=== PATIENT | male | born 1940 | race Caucasian/White ===

== ENCOUNTER 2019-10-22 05:09 | Day surgery (SDC) ==
[2019-10-15 15:16] LABS: HEMATOCRIT 46.4 % (42.0-52.0); HEMOGLOBIN 15.2 g/dL (14.0-18.0); MCH 29.3 PG (27-31); MCHC 32.8 g/dL (33-37); MCV 89.4 FL (81-99); MPV 9.1 FL (7.4-10.4); RBC 5.19 XMIL (4.7-6.1); RDW 13.9 % (11.5-14.5); WBC 9.67 X1000 (4.8-10.8)
--- NOTE | 2019-10-15 15:23 | EKG Report ---
Test Performed on : 10/15/2019 2:59:29 PM Test Reason : pat Blood Pressure : / mmHG Vent. Rate : 091 BPM Atrial Rate : 091 BPM P-R Int : 262 ms QRS Dur : 088 ms QT Int : 376 ms P-R-T Axes : 043 056 050 degrees QTc Int : 462 ms Sinus rhythm. with 1st degree AV block. Otherwise normal ECG When compared with ECG of 06-FEB-2014 12:30, SC interval has increased Vent. rate has increased BY 35 BPM QT has lengthened Confirmed by Priyanka ROBERTS, Eber ([id number]) on 10/15/2019 7:24:14 PM
[2019-10-15 15:59] LABS: CALCIUM 10.2 mg/dL (8.8-10.2); CREATININE 1.6 mg/dL (0.7-1.2); POTASSIUM 3.8 mmol/L (3.5-5.1)
[2019-10-22] MEDS ORDERED: LEVAQUIN 500 MG/D5W 500 MG/100 ML IVPB ONE (05:52)
[2019-10-22] MEDS ORDERED: LR 1,000 ML ONE ×2 (05:52→06:42)
[2019-10-22] MEDS ORDERED: STERILE WATER INJ. ONE (06:29)
[2019-10-22] MEDS ORDERED: QUELICIN (DOSE) ONE (06:29)
[2019-10-22] MEDS ORDERED: NORCURON ONE (06:29)
[2019-10-22] MEDS ORDERED: XYLOCAINE-MPF 2% ONE (06:29)
[2019-10-22] MEDS ORDERED: DIPRIVAN 1% ONE (06:31)
[2019-10-22] MEDS ORDERED: SENSORCAINE-MPF 0.5%/EPI 1:200,000 ONE (06:42)
[2019-10-22] MEDS ORDERED: B & O 15A SUPP ONE (06:42)
[2019-10-22] MEDS ORDERED: ROBINUL ONE ×2 (07:19→10:13)
[2019-10-22] MEDS ORDERED: OFIRMEV 1000 MG/ISOTONIC SOLN 1,000 MG/100 ML BOTTLE ONE (07:28)
[2019-10-22] MEDS ORDERED: DECADRON ONE (08:19)
[2019-10-22] MEDS ORDERED: ZOFRAN ONE (08:19)
[2019-10-22] MEDS ORDERED: NEOSTIGMINE ONE (10:13)
[2019-10-22] MEDS ORDERED: FENTANYL ONE (10:15)
[2019-10-22 10:56] LABS: URINE SOURCE CATH
[2019-10-22] MEDS: DILAUDID ONE ×2 (10:58→11:01)
[2019-10-22 11:00] LABS: BILIRUBIN URINE NEGATIVE (NEGATIVE); BLOOD URINE TRACE (NEGATIVE); COLOR YELLOW; GLUCOSE URINE NEGATIVE (NEGATIVE); KETONE URINE NEGATIVE (NEGATIVE); LEUKOCYTES URINE NEGATIVE (NEGATIVE); NITRITE URINE NEGATIVE (NEGATIVE); PH URINE 8.5; PROTEIN URINE NEGATIVE (NEGATIVE); SP GRAVITY URINE 1.016; TURBIDITY URINE CLEAR (CLEAR); UR EPITHELIAL CELLS <10 /HPF (<10); URINE BACTERIA NEGATIVE /HPF; URINE RBC <10 /HPF (<10); URINE WBC <10 /HPF (<10); UROBILINOGEN URINE NORMAL (NORMAL)
[2019-10-22] MEDS ORDERED: LABETALOL IV PRN (11:30)
[2019-10-22] MEDS ORDERED: OXY IR PO PRN ×2 (11:30)
[2019-10-22] MEDS ORDERED: OFIRMEV 1000 MG/ISOTONIC SOLN 1,000 MG/100 ML BOTTLE IV PRN (11:30)
[2019-10-22] MEDS ORDERED: DITROPAN PO PRN (11:30)
[2019-10-22] MEDS ORDERED: SODIUM CHLORIDE 0.9% INJ PRN (11:30)
[2019-10-22] MEDS ORDERED: BENADRYL LIQUID PO PRN (11:30)
[2019-10-22] MEDS ORDERED: PHENERGAN IV PRN (11:30)
[2019-10-22] MEDS: NS 1,000 ML ONE ×2 (11:32→12:46)
[2019-10-22] MEDS ORDERED: MORPHINE IV PRN (11:52)
--- NOTE | 2019-10-22 13:18 | OPERATIVE NOTE ---
PROCEDURE DATE: 10/22/2019 SURGEON: Silver Reddy MD PREOPERATIVE DIAGNOSIS: Prostate cancer. POSTOPERATIVE DIAGNOSIS: Prostate cancer. PROCEDURE PERFORMED: Laparoscopic robot-assisted radical retropubic prostatectomy and urethral suspension. ANESTHESIA: General endotracheal. FINDINGS: Normal-appearing prostate with attached seminal vesicles and ampulla of the vas deferens. The patient had a previous TURP and the bladder neck was wide open. The obturator fossa and medial external iliac vein was inspected and there was essentially no tissue in these areas. INDICATIONS FOR PROCEDURE: This 79-year-old male was noted to have an elevated PSA to 12 at his routine physical. A followup was 9 with an elevated risk for K score. Transrectal prostate ultrasound and biopsies revealed adenocarcinoma, Ruston grade 3 + 3 in multiple cores from the right side and 2 cores from the left. The various treatments for prostate cancer was discussed with the patient including radiation therapy, hormone deprivation or radical surgery. The patient decided on radical surgery. DESCRIPTION OF PROCEDURE: After informed consent was obtained from the patient and him receiving IV antibiotics, he was taken the main OR, placed in the supine position. General anesthesia via endotracheal tube was achieved. He was then placed in the low lithotomy position and prepped and draped in the usual sterile fashion for abdominal, penile and perineal surgery. The patient was allergic to Betadine so the penile and perineal area was scrubbed with Vinny's Baby shampoo and then DuraPrep was placed. DuraPrep was used on the abdomen as well. After he was prepped and draped an 18-Somali West catheter was passed through the patient's urethra, prostate, and bladder without difficulty. 10 mL sterile water placed in West's balloon. A longitudinal incision was made just above the umbilicus for a distance of about 3 cm. The Veress needle was then passed into the abdominal cavity. Its position verified by the water drop test. Pneumoperitoneum was achieved to 15 cm of water. The robot trocars were placed in their standard position with the assistant professor of nursing port just above the right anterior superior iliac spine. The #1 arm was placed 1 handbreadth lateral to the umbilicus. The #2 arm was placed about 2 handbreadths lateral on the left side. The assistant professor of nursing port which was a 12 mm port was placed in the left epigastric area. After robot trocars and the assistant professor of nursing trocar was placed. The table was lowered all the way down and placed in maximum Trendelenburg. The robot was docked. The procedure was started by taking down adhesions along the left abdominal wall close to the inguinal ring. The patient has had bilateral inguinal hernia repairs with mesh previously. The mesh was not disturbed after this was taken down the #4 arm was used to retract the colon cephalad. He had somewhat of a redundant sigmoid colon. An incision was made in the peritoneum as it reflected off the rectum and going on to the anterior abdominal wall about 2 cm above this reflection. This was taken back to where the ampulla vas deferens on the right was visualized. This was sharply dissected free and traced over to the left vas deferens. Both of these were then incised using electrocautery. The artery to the vas deferens was cauterized. The seminal vesicle was dissected free. The vascular pedicle was clipped and the tip incised and the seminal vesicle was dissected all way back to the base of the prostate. Both sides were accomplished similarly. Denonvilliers fascia was entered in the midline at the base of the prostate and dissected laterally for a short distance. Attention was then turned to the anterior abdominal wall where an incision was made in the peritoneum medial to the internal inguinal ring. This was dissected up lateral to the medial umbilical ligament on to the anterior abdominal wall. Both sides were accomplished similarly. The medial umbilical ligaments and the median umbilical ligament was incised using the electrocautery and the bladder was dropped off of the anterior abdominal wall and the space of Retzius was developed. The endopelvic fascia was incised lateral to the prostate and the incision was extended up to the puboprostatic ligaments and back to the base of the prostate. The levator ani muscles were bluntly dissected off the sides of the prostate. Both sides were accomplished similarly. The puboprostatic ligaments were taken down sharply. The dorsal vein complex was ligated using an 0 V- Loc suture. It was passed under the dorsal vein complex but anterior to the urethra and then through the eye of the suture. This was pulled tight. The suture was passed back under the dorsal vein complex then through the periosteum of the pubis, then back under the dorsal vein complex, and then back through the periosteum of the pubis. The needle was removed and removed from the abdomen. Attention was then turned to the bladder neck which was incised using the Bovie electrocautery dissecting the bladder off the base of the prostate sharply. The bladder was entered. It was seen he had a previous TURP and the bladder neck was wide open but the bladder was able to be dissected off of the base of the prostate without difficulty. The previously dissected space was entered and the seminal vesicles and ampulla vas deferens was pulled up through this opening. The vascular pedicles were then taken down with clips and the neurovascular bundle was bluntly and sharply dissected off the side of the prostate all the way to the apex. Again, both sides were accomplished similarly. The prostate dissected off of the rectum without difficulty. The prostate was then retracted cephalad and the dorsal vein complex as it spread out over the apex of the prostate was cauterized and then incised. The urethra was exposed and incised just distal to the apex of the prostate. This was taken down through the urethra. The West catheter was pulled back and the posterior urethra was incised. The remaining fibers of the rhabdosphincter was incised and the specimen was placed in an EndoCatch retrieval bag and pushed to the side. The obturator areas and medial external vein areas were inspected. No abnormalities were visualized. The vesicovisceral fascia was attached to the posterior rhabdomyolysis sphincter using a running suture of 3-0 V-Loc. The ends of the suture. The needles on each end of the suture were preserved and moved to the side. The bladder was anastomosed to the urethra with a double-armed running suture of 3-0 V-Loc suture. An 18-Somali West catheter was passed into the bladder without difficulty. 10 mL sterile water were placed in the West's balloon. The bladder irrigated without difficulty and no leakage was seen after it was distended to 60 mL. The bladder was drained. The previously placed sutures then anastomosed the vesicovisceral fascia to the posterior rhabdosphincter. The left side was passed through the periosteum of the pubis to the left of midline. The right side was likewise passed through the periosteum of the pubis on the right. Attention was then placed on the sutures and this acted as a urethral suspension. The needles were removed and passed out of the abdomen. The Endo Catch retrieval bag removal string was brought through the camera port. The pneumoperitoneum was dropped to 3 cm of water. No bleeding areas were seen. The robot trocars were removed. The camera port incision that was just above the umbilicus was extended for another cm and the specimen was removed. The abdominal rectus fascia was reapproximated using interrupted sutures of #1 Maxon. The subcutaneous sutures of 3-0 Vicryl were placed to bury the knots. The skin was reapproximated with clips. He tolerated the procedure well. Estimated blood loss about 75 mL. He was extubated and taken to the recovery room in good condition. cc: Silver Reddy MD
[2019-10-22] MEDS: NS 1,000 ML IV SCH ×2 (21:17→22:04)
[2019-10-22] MEDS: COLACE PO SCH (22:01)
[2019-10-22] MEDS: PEPCID PO SCH (22:04)
[2019-10-23] MEDS ORDERED: LEVAQUIN 500 MG/D5W 500 MG/100 ML IVPB IV ONE (06:00)
[2019-10-23 06:39] LABS: HEMOGLOBIN 12.4 g/dL (14.0-18.0); MCH 29.8 PG (27-31); MCHC 32.6 g/dL (33-37); MCV 91.3 FL (81-99); MPV 9.6 FL (7.4-10.4); RBC 4.16 XMIL (4.7-6.1); RDW 14.1 % (11.5-14.5); WBC 12.54 X1000 (4.8-10.8)
[2019-10-23 07:11] LABS: CALCIUM 8.6 mg/dL (8.8-10.2); CREATININE 1.6 mg/dL (0.7-1.2); POTASSIUM 4.1 mmol/L (3.5-5.1)
[2019-10-23 07:37] VITALS: BP 130/84
[2019-10-23] MEDS ORDERED: PROCARDIA ER PO SCH (09:00)
[2019-10-23] MEDS ORDERED: UROCIT-K PO SCH (09:00)
[2019-10-23] MEDS ORDERED: PERIDEX MT SCH (09:00)
[2019-10-23] MEDS ORDERED: HYGROTON PO SCH (09:00)
[2019-10-23] MEDS ORDERED: PATIENT'S OWN MED PO SCH ×2 (09:00)
[2019-10-23] MEDS ORDERED: VITAMIN B-12 PO SCH (09:00)
[2019-10-23] MEDS: COLACE PO SCH (12:00)
[2019-10-23] MEDS: PEPCID PO SCH (12:01)
== END 2019-10-23 12:39 | disposition home or self-care (01) ==
LOC: 4N 05:09 → OR 05:09
PROVIDERS: ATTEND Urology